=== PATIENT | male | born 1960 | race Two or more races ===

== ENCOUNTER 2019-08-12 12:01 | Inpatient (IN) | payer MEDICARE, MEDICAID ==
[~2019-08-12] VITALS: Ht 157.5 cm; Wt 52.2 kg
[2019-08-12] MEDS ORDERED: MIDAZOLAM DRIP 50 mg/50mL 50 ML IV ONE ×2 (12:30→14:34)
[2019-08-12] MEDS ORDERED: ETOMIDATE (2MG/ML) 20ML VIAL IV ONE ×2 (12:30→13:30)
[2019-08-12] MEDS: MIDAZOLAM DRIP 50 mg/50mL 50 ML IV SCH ×2 (12:30→23:32)
[2019-08-12] MEDS ORDERED: SUCCINYLCHOLINE CHLORIDE 20 MG/ML 10ML VIAL IV ONE ×2 (12:30→13:30)
[2019-08-12] MEDS ORDERED: ACETAMINOPHEN 650 MG RECT SUPP PR ONE ×2 (12:55→13:30)
[2019-08-12] MEDS ORDERED: NOREPINEPHRINE 8 MG/250ML KIT 250 ML IV ONE (13:10)
[2019-08-12 13:14] LABS: Hematocrit 45.1 % (41.0-53.0)
[2019-08-12 13:15] LABS: Hemoglobin 14.6 g/dL (13.5-17.5); Mean Corpuscular Hemoglobin 33.1 pg (28.0-32.0); Mean Corpuscular Hgb Conc. 32.4 g/dL (32.0-36.0); Mean Corpuscular Volume 102.3 fL (80.0-100.0); Platelet Count (auto) 166 10^3/uL (140-450); Red Blood Cells 4.41 10^6/uL (4.5-5.90); Red Cell Distribution Width 15.1 % (11.8-14.3)
[2019-08-12 13:31] LABS: Albumin 3.4 g/dL (3.4-5.0); Anion Gap 16 (5-15); Blood Urea Nitrogen 23 mg/dL (7-18); Calcium 8.9 mg/dL (8.5-10.1); Carbon Dioxide 19 mmol/L (21-32); Chloride 106 mmol/L (98-107); Glucose 115 mg/dL (74-106); Potassium 3.5 mmol/L (3.5-5.1); Sodium 141 mmol/L (136-145)
[2019-08-12 13:36] LABS: Blood Alcohol < 3.0 mg/dL (0-5); Lactic Acid w/Reflex 13.4 mmol/L (0.4-2.0)
[2019-08-12 13:37] LABS: Basophils % (manual) 0 (0.0-2.0); Blast Cells 0; Eosinophils % (manual) 0 (0-7); Myelocytes % 0; Promyelocytes % 0; Reactive Lymphocytes 0
[2019-08-12 13:38] LABS: Alanine Aminotransferase 21 U/L (16-61); Alkaline Phosphatase 65 U/L (45-117); Aspartate Aminotransferase 23 U/L (15-37); Bilirubin, Total 0.6 mg/dL (0.2-1.0); GFR African American 56 mL/min; GFR Non-African American 46 mL/min; Total Protein 7.5 g/dL (6.4-8.2)
[2019-08-12] MEDS ORDERED: NOREPINEPHRINE 8 MG/250ML KIT 250 ML IV SCH (13:52)
[2019-08-12 14:00] LABS: Band Neutrophils % (manual) 3; Lymphocytes % (manual) 10 (10.0-50.0); Metamyelocytes % 1; Monocytes % (manual) 10 (0-12)
[2019-08-12 14:39] LABS: INR 1.35 (0.9-1.15); Partial Thromboplastin Time 33.4 sec (23.64-32.05)
[2019-08-12 14:54] LABS: Urine Bacteria NONE SEEN /hpf (None Seen); Urine Blood Negative /uL (Negative); Urine Specific Gravity 1.013 (1.001-1.035); Urine WBC 1 /hpf (0 - 3)
[2019-08-12] MEDS ORDERED: NITROGLYCERIN 0.4 MG SL TAB SL PRN (15:15)
[2019-08-12] MEDS ORDERED: ASCORBIC ACID 500 MG TAB PO ONE (15:15)
[2019-08-12] MEDS ORDERED: SODIUM CHLORIDE 0.9% 1,000 ML IV SCH (15:15)
[2019-08-12] MEDS ORDERED: ZINC SULFATE 220mg CAP or TAB PO ONE (15:15)
[2019-08-12] MEDS ORDERED: VANCOMYCIN PER PHARMACY 0 MG IV SCH (15:15)
[2019-08-12] MEDS ORDERED: MORPHINE SULF INJ 2 MG/ML SYRINGE 1ML IV PRN (15:15)
[2019-08-12] MEDS ORDERED: methylPREDNISolone SOD SUCC 40 MG/ML VL IV ONE (15:15)
[2019-08-12] MEDS: NOREPINEPHRINE 8 MG/250ML KIT 250 ML IV SCH (15:25)
[2019-08-12 15:26] VITALS: BP 98/55
[2019-08-12] MEDS ORDERED: SODIUM CHLORIDE 0.9% 500 ML IV ONE (15:30)
[2019-08-12] MEDS ORDERED: VANCOMYCIN 750mg/250ml 250 ML IV ONE (16:00)
[2019-08-12 16:20] VITALS: BP 113/65
[2019-08-12] MEDS ORDERED: SODIUM BICARBONATE 50ML VIAL 75 ML in D5W 5% 1,000 ML IV SCH (16:30)
[2019-08-12] MEDS: ALBUTEROL SULF 2.5 MG/0.5ML(0.5%) NEB SOLN NEB SCH (18:00)
[2019-08-12] MEDS: IPRATROPIUM BROM 0.5 MG/2.5ML INH SOL NEB SCH (18:00)
[2019-08-12 18:30] VITALS: BP 131/53
[2019-08-12] MEDS: ACETAMINOPHEN 325 MG TAB PO PRN (19:38)
[2019-08-12 20:40] VITALS: BP 82/41
[2019-08-12] MEDS: methylPREDNISolone SOD SUCC 40 MG/ML VL IV SCH (22:00)
[2019-08-12] MEDS: PIPERACILLIN-TAZOB 3.375GM 100 ML IV SCH (22:00)
[2019-08-12] MEDS: ASCORBIC ACID 500 MG TAB PO SCH (22:00)
[2019-08-12 22:40] VITALS: BP 107/41
[2019-08-12 23:18] VITALS: BP 107/41
[2019-08-13] VITALS (12 sets, daily range): BP systolic 87–134; BP diastolic 46–59
[2019-08-13] MEDS ORDERED: SODIUM BICARBONATE 8.4% INJ 50ML SYRINGE ONE ×4 (02:58→05:47)
[2019-08-13] MEDS ORDERED: SODIUM BICARBONATE 8.4 % INJ 50ML VIAL IV ONE ×5 (03:00→05:30)
[2019-08-13] MEDS ORDERED: SODIUM BICARBONATE 50ML VIAL 100 ML in SOD CHL 0.45% 1,000 ML IV SCH (03:00)
[2019-08-13] MEDS: fentaNYL Drip 2500mCg/250mlNS 250 ML IV SCH ×2 (03:44→15:35)
[2019-08-13] MEDS: PHENYLEPHRINE IV 250 ML IV SCH (04:47)
[2019-08-13] MEDS ORDERED: SODIUM CHLORIDE 0.9% 500 ML IV ONE (05:30)
[2019-08-13] MEDS: PIPERACILLIN-TAZOB 3.375GM 100 ML IV SCH ×3 (05:37→22:18)
[2019-08-13] MEDS: SODIUM BICARBONATE 50ML VIAL 150 ML in SOD CHL 0.45% 1,000 ML IV SCH ×4 (06:07→22:44)
[2019-08-13] MEDS: IPRATROPIUM BROM 0.5 MG/2.5ML INH SOL NEB SCH ×4 (06:10→18:36)
[2019-08-13] MEDS: ALBUTEROL SULF 2.5 MG/0.5ML(0.5%) NEB SOLN NEB SCH ×4 (06:10→18:36)
[2019-08-13 06:34] LABS: Hemoglobin 12.7 g/dL (13.5-17.5); Mean Corpuscular Hemoglobin 33.6 pg (28.0-32.0)
[2019-08-13 06:35] LABS: Hematocrit 38.2 % (41.0-53.0); Mean Corpuscular Hgb Conc. 33.3 g/dL (32.0-36.0); Mean Corpuscular Volume 100.8 fL (80.0-100.0); Platelet Count (auto) 41 10^3/uL (140-450); Red Blood Cells 3.79 10^6/uL (4.5-5.90); White Blood Cell 5.7 10^3/uL (4.4-10.8)
[2019-08-13 06:56] LABS: Potassium 3.5 mmol/L (3.5-5.1)
[2019-08-13 06:57] LABS: Basophils % (manual) 0 (0.0-2.0); Blast Cells 0; Eosinophils % (manual) 0 (0-7); Promyelocytes % 0; Reactive Lymphocytes 0
[2019-08-13 07:02] LABS: Albumin 1.8 g/dL (3.4-5.0); BUN/Creatinine Ratio 18.6
[2019-08-13 07:04] LABS: Total Protein 4.5 g/dL (6.4-8.2)
[2019-08-13 07:13] LABS: Calcium 5.9 mg/dL (8.5-10.1)
[2019-08-13 07:58] LABS: Band Neutrophils % (manual) 6; Lymphocytes % (manual) 4 (10.0-50.0); Metamyelocytes % 2; Monocytes % (manual) 8 (0-12); Myelocytes % 1
[2019-08-13] MEDS: ASCORBIC ACID 500 MG TAB PO SCH (10:00)
[2019-08-13] MEDS: methylPREDNISolone SOD SUCC 40 MG/ML VL IV SCH ×2 (10:00→22:18)
[2019-08-13] MEDS ORDERED: ZINC SULFATE 220mg CAP or TAB PO SCH (10:00)
[2019-08-13] MEDS ORDERED: VANCOMYCIN 1GM/250ML 250 ML IV SCH (13:00)
[2019-08-13] MEDS ORDERED: PANTOPRAZOLE 40 MG/10 ML VIAL INJ IV ONE (13:00)
[2019-08-13] MEDS: NOREPINEPHRINE 8 MG/250ML KIT 250 ML IV SCH ×2 (14:28→22:18)
[2019-08-14] VITALS (7 sets, daily range): BP systolic 101–126; BP diastolic 52–70
[2019-08-14] MEDS: IPRATROPIUM BROM 0.5 MG/2.5ML INH SOL NEB SCH ×3 (00:33→12:10)
[2019-08-14] MEDS: ALBUTEROL SULF 2.5 MG/0.5ML(0.5%) NEB SOLN NEB SCH ×2 (00:33→06:00)
[2019-08-14] MEDS: NOREPINEPHRINE 8 MG/250ML KIT 250 ML IV SCH ×2 (02:33→06:54)
[2019-08-14] MEDS: SODIUM BICARBONATE 50ML VIAL 150 ML in SOD CHL 0.45% 1,000 ML IV SCH ×2 (04:30→10:15)
[2019-08-14] MEDS: ACETAMINOPHEN 325 MG TAB PO PRN (04:47)
[2019-08-14] MEDS: PIPERACILLIN-TAZOB 3.375GM 100 ML IV SCH (05:47)
[2019-08-14] MEDS: PHENYLEPHRINE IV 250 ML IV SCH (05:48)
[2019-08-14 06:57] LABS: Hematocrit 41.2 % (41.0-53.0); Hemoglobin 13.7 g/dL (13.5-17.5); Mean Corpuscular Hgb Conc. 33.3 g/dL (32.0-36.0); Mean Corpuscular Volume 98.9 fL (80.0-100.0); Red Blood Cells 4.17 10^6/uL (4.5-5.90); Red Cell Distribution Width 15.1 % (11.8-14.3); White Blood Cell 18.7 10^3/uL (4.4-10.8)
[2019-08-14 07:03] LABS: INR 2.04 (0.9-1.15); Partial Thromboplastin Time 51.3 sec (23.64-32.05)
[2019-08-14 07:16] LABS: Chloride 92 mmol/L (98-107); Platelet Count (auto) 20 10^3/uL (140-450); Potassium 4.1 mmol/L (3.5-5.1); Sodium 139 mmol/L (136-145)
[2019-08-14 07:18] LABS: Basophils % (manual) 0 (0.0-2.0); Blast Cells 0; Eosinophils % (manual) 0 (0-7); Promyelocytes % 0; Reactive Lymphocytes 0
[2019-08-14 07:32] LABS: Alanine Aminotransferase 874 U/L (16-61); Albumin 1.5 g/dL (3.4-5.0); Alkaline Phosphatase 111 U/L (45-117); Anion Gap 22 (5-15); BUN/Creatinine Ratio 17.3; Bilirubin, Total 1.3 mg/dL (0.2-1.0); Blood Urea Nitrogen 59 mg/dL (7-18); Carbon Dioxide 25 mmol/L (21-32); GFR African American 24 mL/min; GFR Non-African American 20 mL/min; Glucose 227 mg/dL (74-106); Total Protein 4.2 g/dL (6.4-8.2)
[2019-08-14 07:36] LABS: Band Neutrophils % (manual) 32; Lymphocytes % (manual) 2 (10.0-50.0); Metamyelocytes % 4; Monocytes % (manual) 5 (0-12); Myelocytes % 2
[2019-08-14 07:54] LABS: Aspartate Aminotransferase 1495 U/L (15-37)
[2019-08-14 07:58] LABS: Calcium < 5.0 mg/dL (8.5-10.1)
[2019-08-14] MEDS ORDERED: CALCIUM CHL 100MG/ML 1,000 MG in D5W 5% 100 ML IV ONE (09:30)
[2019-08-14] MEDS ORDERED: CALCIUM CHL(10%) 100MG/ML 10ML VIAL IV ONE (09:40)
[2019-08-14] MEDS ORDERED: ACETAMINOPHEN 650 mg PER 20 mL UD GT PRN (09:45)
[2019-08-14] MEDS ORDERED: PANTOPRAZOLE 40 MG/10 ML VIAL INJ IV SCH (10:00)
[2019-08-14] MEDS ORDERED: MEROPENEM 500MG IVPB 50 ML IV SCH (10:00)
[2019-08-14] MEDS ORDERED: LORazepam 2MG/ML-1ML VIAL IV PRN (11:30)
[2019-08-14] MEDS: MORPHINE SULF INJ 2 MG/ML SYRINGE 1ML IV PRN ×2 (11:34→12:10)
== END 2019-08-14 12:31 | disposition expired | DRG 871 ==
LOC: ER 12:01 → EDBD 12:01 → OVERFLOW 12:02
PROVIDERS: ADMIT Internal Medicine; ATTEND Internal Medicine
PROC: 5A1945Z Respiratory Ventilation, 24-96 Consecutive Hours (ICD-10-PCS; principal; 2019-08-12)
PROC: 0BH17EZ Insertion of Endotracheal Airway into Trachea, Via Natural or Artificial Opening (ICD-10-PCS; 2019-08-12)
PROC: 02HV33Z Insertion of Infusion Device into Superior Vena Cava, Percutaneous Approach (ICD-10-PCS; 2019-08-12)
DX: A41.51 Sepsis due to Escherichia coli [E. coli] (principal); R65.21 Severe sepsis with septic shock; N17.0 Acute kidney failure with tubular necrosis; J96.00 Acute respiratory failure, unspecified whether with hypoxia or hypercapnia; J15.5 Pneumonia due to Escherichia coli; I96 Gangrene, not elsewhere classified; E87.2 Acidosis; J44.0 Chronic obstructive pulmonary disease with (acute) lower respiratory infection; E86.0 Dehydration; R50.9 Fever, unspecified; E83.51 Hypocalcemia; J44.9 Chronic obstructive pulmonary disease, unspecified; Z20.828 Contact with and (suspected) exposure to other viral communicable diseases
CPT/HCPCS: 31500; 36415; 36569; 36600; 70450; 71045; 80053; 80202; 80320; 81001; 82805; 83605; 83735; 84484; 85007; 85027; 85610; 85730; 87040; 87070; 87077; 87186; 87205; 87804; 87880; 93005; 93306; 94002; 94003; 94640; 99291; C9113; G0378; J0330; J2185; J2250; J2543; J7060